=== PATIENT | female | born 1995 | race African-American/Black ===

== ENCOUNTER 2021-06-30 12:36 | Emergency (ER) | payer OTHER ==
[~2021-06-30] VITALS: Ht 152.4 cm; Wt 43.1 kg
--- NOTE | ~2021-06-30 | EMS ---
[facility] [address] [place] [address] EMS Patient Care Report Name: LURDES ANGELA Room #: DEP WILL Ramos#: [id number] Admission: 06/30/21 Attend Phys: Discharge: 06/30/21 Date of : [birth year] Report #: [id number] THIS REPORT FOR: //name// Report Transmitted: 07/03/2021 08:07 EMS Care Summary [place], [place]/[facility] Incident [id number] @ 06/30/2021 12:06 Incident Location [address] [place], [place] [id number] Patient LURDES ANGELA Female, 26 Years 1995 Patient Address [address] [place], [place] [id number] Patient History Sickle Cell Disease, Patient Allergies Other drug allergy, Patient Medications Ibuprofen, Oxycodone, Chief Complaint Constipated Disposition Transported No Lights/[place] Reason Abdominal Pain/Problems Transported To [facility] Narrative Sickle cell crisis primarily felt in her legs that started this am. She reports that she just got out of the hospital for one recently. Now she feels another [facility] [address] [place] [address] EMS Patient Care Report Name: LURDES ANGELA Room #: DEP Raúl.#: [id number] Admission: 06/30/21 Attend Phys: Discharge: 06/30/21 Date of : [birth year] Report #: [id number] crisis coming on and has constipation from narcotic usage recently. Pt. denies chest pain or shortness of air. Pt. found walking to cot, crying rule out sickle cell crisis vs. severe constipation assisted to cot, secured, vitals, transported to Hospital without changes, care transferred to staff physical therapist with report given. Initial Vitals @12:28P: 108,R: 26,BP: 117/70,Pain: 6/10,GCS: 15,SpO2: 100,Revised Trauma: 12, Assessments @12:18MENTAL:Place Oriented,Person Oriented,Event Oriented,Time Oriented,SKIN:HEENT:LUNG SOUNDS:ABDOMEN:PELVIS//GI:EXTREMITIES:PULSE:NEURO: Impression Sickle Cell Crisis Procedures @12:19 ALS Assessment Response: UnchangedSucceeded @12:20 Stretcher Response: Unchanged Timeline 12:05,Call Received 12:05,Dispatch Notified 12:06,Dispatched 12:06,En Route 12:16,On Scene 12:18,At Patient 12:19,ALS Assessment,Response: UnchangedSucceeded, 12:20,Stretcher,Response: Unchanged 12:23,Depart Scene 12:28,BP: 117/70 M,PULSE: 108,RR: 26 R,SPO2: 100 Ox,ETCO2: ,BG: ,PAIN: 6,GCS: 15, 12:50,At Destination 13:02,Call Closed Disclaimer v1.1 Copyright 2020 [employer] This EMS Care Summary contains data elements from the applicable legal record (which may be displayed differently). It is designed to provide pertinent information for the following purposes: continuity of care, clinical quality, and state data reporting. The complete legal record is available to ED staff [facility] [address] [place] [address] EMS Patient Care Report Name: LURDES ANGELA Room #: DEP Richard#: [id number] Admission: 06/30/21 Attend Phys: Discharge: 06/30/21 Date of : [birth year] Report #: [id number] and administrators of the receiving hospital in [facility]'s Patient Tracker. All data is provided "as is."
[~2021-06-30 12:36] MED LIST: IBUPROFEN200 M1 PO; LACTULOSE PO; PERCOCET PO; oxycontin PO
[2021-06-30] MEDS ORDERED: OXYCODONE HCL 55 MG PO (12:58)
[2021-06-30 13:28] LABS: HEMATOCRIT 22.7 % (37.0-47.0); HEMOGLOBIN 7.7 gm/dL (12.0-15.0)
[2021-06-30 13:31] LABS: ABSOLUTE NEUTROPHILS 13.5 thou/uL (1.4-8.2); ABSOLUTE RETIC COUNT 0.2043 10^6/uL; BASOPHILS 0.3 % (0.0-2.0); EOSINOPHILS 0.4 % (0.0-3.0); LYMPHOCYTES 12.6 % (24.0-44.0); MCH 28.9 pg (26.0-34.0); MONOCYTES 9.8 % (1.0-8.0); OBSERVED RETIC COUNT 7.64 % (0.6-2.6); PLATELET COUNT 474 thou/uL (150-400); POLYS 76.9 % (36.0-66.0); RBC 2.67 mil/uL (4.20-5.00); RDW 21.2 % (10.5-14.5); WBC 17.6 thou/uL (4.0-11.0)
[2021-06-30 13:34] LABS: CREATININE 0.6 mg/dL (0.6-1.0)
[2021-06-30 13:42] LABS: ALBUMIN 3.9 g/dL (3.4-5.0); TOTAL BILIRUBIN 2.4 mg/dL (0.2-1.0); TOTAL PROTEIN 7.3 g/dL (6.4-8.2)
[2021-06-30 14:22] LABS: ANISOCYTOSIS 3+; POIKILOCYTOSIS 3+
[2021-06-30 14:48] LABS: INR 1.07; PROTIME 11.6 Seconds (10.5-12.1)
[2021-06-30 19:17] LABS: URINE BILIRUBIN NEGATIVE (Negative); URINE BLOOD 2+ (Negative); URINE CLARITY CLEAR; URINE COLOR YELLOW; URINE GLUCOSE-RANDOM* NEGATIVE (Negative); URINE KETONES NEGATIVE (Negative); URINE LEUKOCYTES-REFLEX NEGATIVE (Negative); URINE NITRITE-REFLEX NEGATIVE (Negative); URINE PROTEIN (DIPSTICK) NEGATIVE (Negative); URINE SPECIFIC GRAVITY 1.015 (1.005-1.035); URINE UROBILINOGEN 0.2 E.U./dl (0.2-1.0)
[2021-06-30 19:22] LABS: SQUAMOUS 0-3 Few /LPF (0-3)
[2021-06-30 19:23] LABS: BACTERIA-REFLEX 1-9 Few /HPF (None Seen); CASTS None Seen /LPF (None Seen); CRYSTALS None Seen /LPF (None Seen); URINE RBC 3-10 Few /HPF (NONE SEEN); URINE WBC-REFLEX 0-5 Rare /HPF (0-5)
[2021-06-30] MEDS ORDERED: KRISTALOSE20 GM PO (21:48)
[2021-06-30 22:11] VITALS: BP 112/61
== END 2021-06-30 22:18 | disposition home or self-care (01) ==
LOC: ER 12:36
PROVIDERS: Nurse Practitioner
DX: D57.00 Hb-SS disease with crisis, unspecified (principal); Z20.822 Contact with and (suspected) exposure to COVID-19; D72.829 Elevated white blood cell count, unspecified; K59.00 Constipation, unspecified; R10.30 Lower abdominal pain, unspecified; Z79.899 Other long term (current) drug therapy; Z88.8 Allergy status to other drugs, medicaments and biological substances